=== PATIENT | female | born 1945 | race Hispanic/Latino ===

== ENCOUNTER 2016-05-24 10:47 | Outpatient (CLI) | payer MEDICARE, OTHER ==
--- NOTE | 2016-05-25 10:34 | PET Report ---
PET/CT:05/24/16 10:47:00 CLINICAL: Ovarian cancer restaging. RADIOPHARMACEUTICAL: 14.9mCi F18-FDG. COMPARISON: 02/16/16 PET/CT TECHNIQUE- Following intravenous injection of F-18 FDG and an approximately 60 minute uptake period, CT and PET images from the mid skull to the upper thighs were acquired with the patient in the fasted state. No contrast was administered. The CT protocol used for this PET CT study is designed for attenuation correction and anatomic localization of PET abnormalities. This grocery bagger CT is not desired to produce and cannot replace, lgbhi-ns-ywc-art diagnostic CT scans with specific imaging protocols for different body parts and indications. Plasma glucose at the time of this test: 98g/dl. The standardized uptake values (SUV) are normalized to patient body weight and indicate the highest activity concentration (SUV max) in a given disease site. FINDINGS: Brain--Physiologic FDG uptake in the visualized regions of the brain. Neck--Physiologic FDG uptake . Chest--Physiologic FDG uptake in mediastinal blood pool and myocardium. Lungs--No abnormal uptake. No pulmonary nodule or mass. Pleura/pericardium--No abnormal uptake. Thoracic nodes--No abnormal uptake. Hepatobiliary--No abnormal uptake. Liver background SUV mean, as a reference for comparing FDG studies, is 4.0 compared to 4.2 on the last exam. No liver mass. Spleen--No abnormal uptake. Pancreas--No abnormal uptake. Adrenal Glands--No abnormal uptake. Kidneys/Ureters/Bladder--No abnormal uptake. Abdominopelvic Nodes--No abnormal uptake. Bowel/Peritoneum/Mesentery--No abnormal uptake. Pelvic organs--No abnormal uptake. Status post total abdominal hysterectomy. Bones/Soft Tissues--No abnormal uptake. Other findings: Status post left mastectomy. Intact ventral abdominal mesh graft. IMPRESSION- Negative study.
== END 2016-05-24 10:48 | disposition home or self-care (01) ==
LOC: PET 10:47
PROVIDERS: ATTEND Internal Medicine Hematology & Oncology
DX: C56.9 Malignant neoplasm of unspecified ovary (principal); Z90.710 Acquired absence of both cervix and uterus; Z90.12 Acquired absence of left breast and nipple
CPT/HCPCS: 78815; 82962; A9552

== ENCOUNTER 2017-04-04 10:15 | Outpatient (CLI) | payer MEDICARE, OTHER ==
--- NOTE | 2017-04-05 09:16 | PET Report ---
PET/CT:04/04/17 10:15:00 CLINICAL: Ovarian cancer restaging. RADIOPHARMACEUTICAL: 14.06mCi F18-FDG. COMPARISON: 05/24/16 PET/CT TECHNIQUE- Following intravenous injection of F-18 FDG and an approximately 60 minute uptake period, CT and PET images from the mid skull to the upper thighs were acquired with the patient in the fasted state. No contrast was administered. The CT protocol used for this PET CT study is designed for attenuation correction and anatomic localization of PET abnormalities. This spiral tube winder helper CT is not desired to produce and cannot replace, srcgp-pe-jpz-art diagnostic CT scans with specific imaging protocols for different body parts and indications. Plasma glucose at the time of this test: 108g/dl. The standardized uptake values (SUV) are normalized to patient body weight and indicate the highest activity concentration (SUV max) in a given disease site. FINDINGS: Brain--Physiologic FDG uptake in the visualized regions of the brain. Neck--Physiologic FDG uptake in mucosal structures. A 1 cm FDG avid subcutaneous occipital skin nodule with SUV 4.1. It was not present on the last exam and I haven't found record of it being present on any other previous exams. Chest--Physiologic FDG uptake in mediastinal blood pool and myocardium. Lungs--No abnormal uptake. No pulmonary nodule or mass. Pleura/pericardium--No abnormal uptake. Thoracic nodes--No abnormal uptake. Hepatobiliary--No abnormal uptake. Liver background SUV mean, as a reference for comparing FDG studies, is 4.1 compared to 4.0 on the last exam. No liver mass. Spleen--No abnormal uptake. Pancreas--No abnormal uptake. Adrenal Glands--No abnormal uptake. Kidneys/Ureters/Bladder--No abnormal uptake. Abdominopelvic Nodes--No abnormal uptake. Bowel/Peritoneum/Mesentery--No abnormal uptake. Pelvic organs--No abnormal uptake. Bones/Soft Tissues--No abnormal uptake. Other findings: Status post left mastectomy. Intact right breast implant. Intact ventral abdominal mesh graft. IMPRESSION- 1. A new 1 cm FDG avid subcutaneous occipital skin nodule which is of uncertain clinical significance. This is most likely a benign sebaceous cyst with inflammation or less likely a metastatic nodule. Recommend clinical correlation. 2. No other significant findings.
== END 2017-04-04 10:16 | disposition home or self-care (01) ==
LOC: PET 10:15
PROVIDERS: ATTEND Internal Medicine Hematology & Oncology
DX: C56.1 Malignant neoplasm of right ovary (principal); C56.2 Malignant neoplasm of left ovary; R79.89 Other specified abnormal findings of blood chemistry; Z90.12 Acquired absence of left breast and nipple
CPT/HCPCS: 78815; 82962; A9552

== ENCOUNTER 2017-10-04 12:46 | Outpatient (CLI) | payer MEDICARE, OTHER ==
--- NOTE | 2017-10-04 16:24 | Cat Scan Report ---
FINAL REPORT EXAM: CT ABDOMEN PELVIS WO CON HISTORY: LLQ PAIN COMPARISON: Multiple contiguous axial images were obtained from the lung bases to the pubic symphysis without administration of IV contrast. Reformatted sagittal and coronal images were available for review. TECHNIQUE: Lung bases: Atelectasis and peripheral fibrotic change at the bilateral lung bases. Visualized heart and mediastinum: Normal noncontrast appearance. Liver: Normal noncontrast appearance. Spleen: Normal noncontrast appearance. Pancreas: Normal noncontrast appearance. Gallbladder and Biliary Tree: No calcified gallstones. No biliary ductal dilatation. Adrenal glands: Normal. Kidneys: 1 centimeter simple appearing cyst in the superior pole of the right kidney. No hydronephrosis. No renal or ureteral calculi. Bladder: Partially obscured by streak artifact from the bilateral hip arthroplasties. Pelvic organs: The uterus has been surgically removed. Bowel: No focal wall thickening. No evidence of obstruction. Diverticulosis of the sigmoid colon without evidence of diverticulitis. The appendix is not clearly identified but may have been removed. Peritoneum: No significant mesenteric adenopathy. No free air or free fluid. Abandoned lead or catheter is seen adjacent to the inferior vena cava and along the right aspect of the L2 vertebral body. Vasculature: Abdominal aorta is normal in caliber without evidence of aneurysm. Scattered atherosclerotic calcifications. Normal noncontrast appearance of the portal venous system and the inferior vena cava. Bones and soft tissues: No suspicious osseous lesions. No acute fracture or dislocation. Prior vertebroplasties at L1 and L2. Postsurgical changes from ventral hernia repair. No visualized inflammatory change or abscess formation. Bilateral hip arthroplasties are in place. FINDINGS: No acute intra-abdominal pathology. No evidence of obstruction. Diverticulosis of the sigmoid colon without evidence of diverticulitis. Simple appearing cyst in the superior pole of the right kidney. IMPRESSION:
== END 2017-10-04 12:47 | disposition home or self-care (01) ==
LOC: CT 12:46
PROVIDERS: ATTEND Surgery
DX: N28.1 Cyst of kidney, acquired (principal); K57.30 Diverticulosis of large intestine without perforation or abscess without bleeding; I70.0 Atherosclerosis of aorta; Z96.643 Presence of artificial hip joint, bilateral
CPT/HCPCS: 74176

== ENCOUNTER 2018-04-10 09:27 | Outpatient (CLI) | payer MEDICARE, OTHER ==
--- NOTE | 2018-04-11 09:10 | PET Report ---
PET/CT:04/10/18 09:27:00 CLINICAL: Breast cancer restaging. RADIOPHARMACEUTICAL: 12.98mCi F18-FDG. COMPARISON: 04/04/17 PET/CT TECHNIQUE- Following intravenous injection of F-18 FDG and an approximately 60 minute uptake period, CT and PET images from the mid skull to the upper thighs were acquired with the patient in the fasted state. No contrast was administered. The CT protocol used for this PET CT study is designed for attenuation correction and anatomic localization of PET abnormalities. This police radio dispatcher CT is not desired to produce and cannot replace, pazzk-vi-snp-art diagnostic CT scans with specific imaging protocols for different body parts and indications. Plasma glucose at the time of this test: 144g/dl. The standardized uptake values (SUV) are normalized to patient body weight and indicate the highest activity concentration (SUV max) in a given disease site. FINDINGS: Brain--Physiologic FDG uptake in the visualized regions of the brain. Neck--Physiologic FDG uptake in mucosal structures. No mass or lymphadenopathy. The previously described FDG avid subcutaneous occipital skin nodule has resolved. Chest--Physiologic FDG uptake in mediastinal blood pool and myocardium. Left Xszdnr-z-Pbrj tip is at the cavoatrial junction. Lungs--No abnormal uptake. No pulmonary nodule or mass. Pleura/pericardium--No abnormal uptake. Thoracic nodes--No abnormal uptake. Hepatobiliary--No abnormal uptake. Liver background SUV mean, as a reference for comparing FDG studies, is 3.6 compared to 4.1 on the last exam. No liver mass. Spleen--No abnormal uptake. Pancreas--No abnormal uptake. Adrenal Glands--No abnormal uptake. Kidneys/Ureters/Bladder--No abnormal uptake. Abdominopelvic Nodes--No abnormal uptake. Bowel/Peritoneum/Mesentery--No abnormal uptake. Pelvic organs--No abnormal uptake. Bones/Soft Tissues--No abnormal uptake and no suspicious bone lesions. Status post kyphoplasty at L1 and L2. Other findings: Status post left mastectomy. Intact right breast implant. Intact ventral abdominal mesh graft. IMPRESSION- Negative study with no evidence of disease recurrence or metastasis.
== END 2018-04-10 09:28 | disposition home or self-care (01) ==
LOC: PET 09:27
PROVIDERS: ATTEND Internal Medicine Hematology & Oncology
DX: C56.9 Malignant neoplasm of unspecified ovary (principal); Z88.8 Allergy status to other drugs, medicaments and biological substances
CPT/HCPCS: 78815; 82962; A9552

== ENCOUNTER 2019-03-19 14:33 | Outpatient (CLI) | payer MEDICARE, OTHER ==
--- NOTE | 2019-03-19 15:42 | XRay Report ---
BILATERAL KNEE 4 VIEW(S) INDICATION / CLINICAL INFORMATION: KNEE PAIN COMPARISON: None available. FINDINGS: BONES / JOINT(S): No acute fracture or subluxation. Old, healed fracture of the proximal left fibula. Mild right patellofemoral degenerative arthrosis. Mild to moderate left lateral compartment and bowling llofemoral compartment degenerative arthrosis. No joint effusion on either side. SOFT TISSUES: No significant abnormality. ADDITIONAL FINDINGS: None. Signer Name: Bartolome Madrid MD Signed: 03/19/2019 3:38 PM Workstation Name: [id number]
--- NOTE | 2019-03-19 15:42 | XRay Report ---
LEFT HAND 3 VIEW(S) INDICATION / CLINICAL INFORMATION: HAND PAIN COMPARISON: None available. FINDINGS: BONES / JOINT(S): No acute fracture or subluxation. Mild degenerative arthrosis of the interphalangea l joints of the fingers and thumb as well as the thumb MCP and triscaphe joints. No osseous erosions. SOFT TISSUES: No significant abnormality. ADDITIONAL FINDINGS: None. Signer Name: Bartolome Madrid MD Signed: 03/19/2019 3:37 PM Workstation Name: [id number]
--- NOTE | 2019-03-19 15:43 | XRay Report ---
RIGHT HAND 2 VIEW(S) INDICATION / CLINICAL INFORMATION: HAND PAIN COMPARISON: None available. FINDINGS: BONES / JOINT(S): No acute fracture or subluxation. Mild degenerative arthrosis of the interphalangea l joints of the fingers and thumb. Mild degenerative arthrosis of the thumb CMC and triscaphe joints. No osseous erosions. Small, benign-appearing bony excrescence from the ulnar aspect of the head of t he index finger metacarpal. SOFT TISSUES: No significant abnormality. ADDITIONAL FINDINGS: None. Signer Name: Bartolome Madrid MD Signed: 03/19/2019 3:39 PM Workstation Name: [id number]
== END 2019-03-19 14:34 | disposition home or self-care (01) ==
LOC: SPVIMAG 14:33
PROVIDERS: ATTEND Specialist
DX: M17.0 Bilateral primary osteoarthritis of knee (principal); M06.4 Inflammatory polyarthropathy; M19.041 Primary osteoarthritis, right hand; M19.042 Primary osteoarthritis, left hand; Z79.899 Other long term (current) drug therapy; Z87.81 Personal history of (healed) traumatic fracture

== ENCOUNTER 2020-04-25 08:13 | Outpatient (CLI) | payer MEDICARE, OTHER ==
--- NOTE | 2020-04-25 10:26 | Cat Scan Report ---
CT ABDOMEN AND PELVIS WITHOUT CONTRAST INDICATION / CLINICAL INFORMATION: MALIGNANT NEOPLASM. TECHNIQUE: Axial CT images were obtained through the abdomen and pelvis without IV contrast. All CT scans at [facility] location are performed using CT dose reduction for ALARA by means of automated exposure control. COMPARISON: 10/04/2017. FINDINGS: LOWER CHEST: Minimal interval worsening of interstitial lung disease within the bibasilar region demo nstrating scattered groundglass, bronchiectasis, and interlobular septal thickening. Mild coronary ar dale calcifications are noted. Right breast implant. Central venous catheter tip noted at the superio r atrial caval junction. LIVER: No significant abnormality. GALLBLADDER: No significant abnormality. BILE DUCTS: No significant abnormality. PANCREAS: No significant abnormality. SPLEEN: No significant abnormality. ADRENALS: No significant abnormality. RIGHT KIDNEY / URETER: Simple renal cyst is stable since prior exam. No calcified stones or hydroneph rosis. LEFT KIDNEY / URETER: No significant abnormality. STOMACH / SMALL BOWEL: No significant abnormality. No mechanical bowel structure. COLON: Mild diverticulosis without evidence of diverticulitis. APPENDIX: Surgically absent. PERITONEUM: No free fluid. No free air. No fluid collection. LYMPH NODES: No significant adenopathy. AORTA / ARTERIES: Moderate atherosclerotic calcification without acute abnormality. IVC / VEINS: Metallic embolic coil within the IVC unchanged since prior exam. URINARY BLADDER: Limited evaluation secondary to streak artifact from bilateral total hip arthroplast ies. REPRODUCTIVE ORGANS: Prior hysterectomy. ADDITIONAL FINDINGS: Postsurgical changes with ventral abdominal mesh stable since prior exam. SKELETAL SYSTEM: Bilateral total hip arthroplasties are in stable position and causing streak artifac t across the pelvis. Previously noted multilevel degenerative changes with multiple levels of chronic compression fracture and prior vertebroplasties are stable since prior exam. No aggressive osseous l esions. IMPRESSION: 1. No acute process of the abdomen or pelvis. 2. Minimal interval worsening of previously noted chronic interstitial lung disease, please see above for full details. 3. Findings are otherwise not significantly changed since 10/04/2017. Signer Name: Matt Cerrato MD Signed: 04/25/2020 10:22 AM Workstation Name: [id number]
== END 2020-04-25 08:14 | disposition home or self-care (01) ==
LOC: CT 08:13
PROVIDERS: ATTEND Obstetrics & Gynecology Gynecologic Oncology
DX: N28.1 Cyst of kidney, acquired (principal); I25.10 Atherosclerotic heart disease of native coronary artery without angina pectoris; I70.0 Atherosclerosis of aorta; K57.30 Diverticulosis of large intestine without perforation or abscess without bleeding; R91.8 Other nonspecific abnormal finding of lung field; Z98.82 Breast implant status; Z85.43 Personal history of malignant neoplasm of ovary; Z96.643 Presence of artificial hip joint, bilateral
CPT/HCPCS: 36415; 74176; 82565; 84520